=== PATIENT | female | born 1990 | race African-American/Black ===

== ENCOUNTER 2018-04-01 12:41 | Emergency (ER) | payer OTHER ==
[~2018-04-01] VITALS: Ht 157.5 cm; Wt 75.0 kg
[~2018-04-01 12:41] MED LIST: ATARAX25 MG PO; BCP TD; PRENATAL1 TA1 PO
[2018-04-01 12:47] VITALS: TEMP 98.2
[2018-04-01] MEDS ORDERED: FLEXERIL 1010 MG/TAB PO (15:42)
[2018-04-01 16:04] VITALS: BP 102/54; PULSE 60
== END 2018-04-01 16:05 | disposition home or self-care (01) ==
LOC: COL.ER 12:41
DX: S16.1XXA Strain of muscle, fascia and tendon at neck level, initial encounter (principal); Z90.89 Acquired absence of other organs; Z98.890 Other specified postprocedural states; Z87.891 Personal history of nicotine dependence; V49.50XA Passenger injured in collision with unspecified motor vehicles in traffic accident, initial encounter

== ENCOUNTER 2018-04-26 23:55 | Emergency (ER) | payer SELFPAY ==
[~2018-04-26] VITALS: Ht 157.5 cm; Wt 77.3 kg
[~2018-04-26 23:55] MED LIST changes: +FLEXERIL 1010 MG/TAB PO
[2018-04-27 00:02] VITALS: BP 110/56; TEMP 98.7
[2018-04-27 01:25] VITALS: PULSE 64
== END 2018-04-27 01:27 | disposition home or self-care (01) ==
LOC: COL.ER 23:55
DX: S83.91XA Sprain of unspecified site of right knee, initial encounter (principal); Z87.891 Personal history of nicotine dependence; Z88.8 Allergy status to other drugs, medicaments and biological substances; W22.8XXA Striking against or struck by other objects, initial encounter; Y99.0 Civilian activity done for income or pay

== ENCOUNTER 2018-08-06 19:57 | Emergency (ER) | payer SELFPAY | END 2018-08-06 20:30 | disposition left against medical advice (07) | LOC: COL.ER 19:57 | DX: Z72.9 Problem related to lifestyle, unspecified (principal) ==

== ENCOUNTER 2018-11-05 03:01 | Emergency (ER) | payer SELFPAY ==
[~2018-11-05] VITALS: Ht 157.5 cm; Wt 68.2 kg
[2018-11-05 03:06] VITALS: TEMP 98.9
[2018-11-05 04:25] LABS: BASO # 0.1 (0.0-0.2); BASO % 0.3 % (0.0-2.0); EOS # 0.1 (0.0-0.7); EOS % 0.7 % (0-4.0); GRAN # 10.5 (1.4-6.5); GRAN % 71.6 % (42.2-75.2); HEMATOCRIT 34.7 % (37.0-47.0); HEMOGLOBIN 11.9 g/dl (12.5-16.0); LYMPH % 20.2 % (20.0-51.0); MEAN CELL VOLUME 87 fl (80.0-100.0); MEAN CORPUSCULAR HEMOGLOBIN 30 pg (27.0-31.0); MEAN CORPUSCULAR HGB CONC 34 g/dl (33.0-37.0); MEAN PLATELET VOLUME 10.4 fl (7.4-10.4); MONO % 6.9 % (1.7-9.3); PLATELET COUNT 332 K/mm3 (130-400); RED BLOOD COUNT 3.98 M/mm3 (4.10-5.30); REDCELL DISTRIBUTION WIDTH-CV 14.2 % (11.5-14.5)
[2018-11-05 04:36] LABS: ANION GAP 8 mmol/L (7-16); BLOOD UREA NITROGEN 14 mg/dL (7-17); CARBON DIOXIDE 25 mmol/L (22-30); CHLORIDE 108 mmol/L (98-107); GLUCOSE 121 mg/dL (74-106); SODIUM 140 mmol/L (137-145)
[2018-11-05 04:45] LABS: C-REACTIVE PROTEIN < 0.5 mg/dL (0.0-0.9)
[2018-11-05 04:46] LABS: POTASSIUM 2.9 mmol/L (3.4-5.0)
[2018-11-05] MEDS ORDERED: CLEOCIN HCL300 MG PO (05:48)
[2018-11-05] MEDS ORDERED: NORCO 325 MG-51 TAB PO (05:48)
[2018-11-05 06:34] VITALS: BP 108/76; PULSE 60
== END 2018-11-05 06:44 | disposition home or self-care (01) ==
LOC: COL.ER 03:01
PROVIDERS: Emergency Medicine
DX: L03.011 Cellulitis of right finger (principal); F17.210 Nicotine dependence, cigarettes, uncomplicated
CPT/HCPCS: J3480; J7030

== ENCOUNTER 2018-12-02 20:54 | Emergency (ER) | payer SELFPAY ==
[~2018-12-02] VITALS: Ht 157.5 cm; Wt 69.1 kg
[~2018-12-02 20:54] MED LIST changes: +CLEOCIN HCL300 MG PO; +NORCO 325 MG-51 TAB PO
[2018-12-02 21:07] VITALS: BP 124/84; PULSE 93; TEMP 97.9
[2018-12-02] MEDS ORDERED: DOXYCYCLINE 10100 MG PO (21:29)
== END 2018-12-02 21:48 | disposition home or self-care (01) ==
LOC: COL.ER 20:54
DX: L02.414 Cutaneous abscess of left upper limb (principal); L03.114 Cellulitis of left upper limb

== ENCOUNTER 2019-06-06 15:56 | Emergency (ER) | payer SELFPAY ==
[~2019-06-06] VITALS: Ht 157.5 cm; Wt 72.7 kg
[~2019-06-06 15:56] MED LIST changes: +DOXYCYCLINE 10100 MG PO
[2019-06-06 16:07] VITALS: BP 120/91; TEMP 98
[2019-06-06 16:39] LABS: BASO % 0.4 % (0.0-2.0); EOS # 0.1 (0.0-0.7); EOS % 1.5 % (0-4.0); GRAN # 5.6 (1.4-6.5); GRAN % 65.9 % (42.2-75.2); HEMOGLOBIN 12.6 g/dl (12.5-16.0); LYMPH # 2.3 (1.2-3.4); LYMPH % 27.4 % (20.0-51.0); MEAN CELL VOLUME 91 fl (80.0-100.0); MEAN CORPUSCULAR HEMOGLOBIN 30 pg (27.0-31.0); MEAN CORPUSCULAR HGB CONC 33 g/dl (33.0-37.0); MONO # 0.4 (0.1-0.6); MONO % 4.6 % (1.7-9.3); PLATELET COUNT 384 K/mm3 (130-400); RED BLOOD COUNT 4.18 M/mm3 (4.10-5.30); REDCELL DISTRIBUTION WIDTH-CV 13.5 % (11.5-14.5)
[2019-06-06 16:51] LABS: ALBUMIN 4.3 gm/dL (3.5-5.0); BILIRUBIN,TOTAL 0.4 mg/dL (0.0-1.0); CALCIUM 9.2 mg/dL (8.4-10.2); CREATININE, serum 0.74 (0.52-1.25); POTASSIUM 3.5 mmol/L (3.4-5.0); TOTAL PROTEIN 7.1 gm/dL (6.4-8.2)
[2019-06-06 17:55] VITALS: PULSE 70
== END 2019-06-06 18:00 | disposition home or self-care (01) ==
LOC: COL.ER 15:56
PROVIDERS: Emergency Medicine
DX: N93.9 Abnormal uterine and vaginal bleeding, unspecified (principal); F17.210 Nicotine dependence, cigarettes, uncomplicated; Z98.51 Tubal ligation status

== ENCOUNTER 2021-04-29 15:04 | Emergency (ER) | payer SELFPAY ==
[~2021-04-29] VITALS: Ht 157.5 cm; Wt 75.9 kg
[2021-04-29 15:36] VITALS: TEMP 98.3
[2021-04-29 17:54] LABS: COLLECTION METHOD CLEAN CATCH
[2021-04-29 17:56] LABS: BASO % 0.5 % (0.0-2.0); GRAN # 2.2 K/mm3 (1.4-6.5); GRAN % 59.8 % (42.2-75.2); HEMOGLOBIN 11.5 g/dl (12.5-16.0); LYMPH # 0.8 K/mm3 (1.2-3.4); LYMPH % 22.5 % (20.0-51.0); MEAN CELL VOLUME 92 fl (80.0-100.0); MEAN CORPUSCULAR HEMOGLOBIN 30 pg (27-31); MEAN CORPUSCULAR HGB CONC 33 g/dl (33.0-37.0); MEAN PLATELET VOLUME 10.3 fl (7.4-10.4); MONO # 0.6 K/mm3 (0.1-0.6); MONO % 16.9 % (1.7-9.3); PLATELET COUNT 285 K/mm3 (130-400); RED BLOOD COUNT 3.81 M/mm3 (4.10-5.30); REDCELL DISTRIBUTION WIDTH-CV 13.7 % (11.5-14.5)
[2021-04-29 17:58] LABS: HEMATOCRIT 35.1 % (37.0-47.0)
[2021-04-29 18:03] LABS: MUCOUS Present (NOT PRESENT); PH 5 (5-8); URINE APPEARANCE Clear (CLEAR/HAZY); URINE BACTERIA None Seen /hpf (NONE SEEN); URINE BILIRUBIN Negative (NEGATIVE); URINE BLOOD Negative (NEGATIVE); URINE COLOR Yellow (YELLOW); URINE GLUCOSE Negative (NEGATIVE); URINE KETONE Trace (NEGATIVE); URINE LEUKOCYTE ESTERASE Negative (NEGATIVE); URINE NITRATE Negative (NEGATIVE); URINE PROTEIN(semi-quant) Negative (NEGATIVE); URINE RBC 0-2 /hpf (0-2); URINE UROBILINOGEN Negative (NEGATIVE)
[2021-04-29 18:32] LABS: ALBUMIN 3.8 gm/dL (3.5-5.0); BILIRUBIN,TOTAL 0.3 mg/dL (0.2-1.2); C-REACTIVE PROTEIN 1.3 mg/dL (0.00-0.50); CALCIUM 8.3 mg/dL (8.4-10.2); CREATININE, serum 0.76 mg/dL (0.57-1.11); POTASSIUM 3.1 mmol/L (3.5-4.5); TOTAL PROTEIN 6.5 gm/dL (6.2-8.1)
[2021-04-29] MEDS ORDERED: FLAGYL500 MG PO (19:27)
[2021-04-29 19:48] VITALS: BP 112/61; PULSE 78
== END 2021-04-29 19:46 | disposition home or self-care (01) ==
LOC: COL.ER 15:04
PROVIDERS: Nurse Practitioner
DX: U07.1 COVID-19 (principal); N76.0 Acute vaginitis; Z32.02 Encounter for pregnancy test, result negative
CPT/HCPCS: J2405; J3010; J7030

== ENCOUNTER 2021-09-06 08:46 | Inpatient (IN) | payer SELFPAY ==
[2021-09-06] VITALS (585 sets, daily range): BP systolic 91–139; BP diastolic 57–89; PULSE 69–98; TEMP 98–98.7; O2SAT 97–100
[~2021-09-06] VITALS: Ht 157.5 cm; Wt 76.6 kg
[~2021-09-06 08:46] MED LIST changes: +FLAGYL500 MG PO
[2021-09-06 09:24] LABS: BASO # 0.1 K/mm3 (0.0-0.2); BASO % 0.4 % (0.0-2.0); GRAN # 11.1 K/mm3 (1.4-6.5); GRAN % 88.4 % (42.2-75.2); HEMATOCRIT 37.7 % (37.0-47.0); HEMOGLOBIN 12.4 g/dl (12.5-16.0); LYMPH # 1.1 K/mm3 (1.2-3.4); LYMPH % 8.9 % (20.0-51.0); MEAN CELL VOLUME 90 fl (80.0-100.0); MEAN CORPUSCULAR HEMOGLOBIN 30 pg (27-31); MEAN CORPUSCULAR HGB CONC 33 g/dl (33.0-37.0); MEAN PLATELET VOLUME 9.6 fl (7.4-10.4); MONO # 0.2 K/mm3 (0.1-0.6); MONO % 1.8 % (1.7-9.3); PLATELET COUNT 403 K/mm3 (130-400); RED BLOOD COUNT 4.17 M/mm3 (4.10-5.30); REDCELL DISTRIBUTION WIDTH-CV 14.4 % (11.5-14.5)
[2021-09-06 09:36] LABS: INR 1.1 (0.8-3.0); PROTHROMBIN TIME 12.6 SECONDS (9.7-12.8)
[2021-09-06 09:44] LABS: ALANINE AMINOTRANSFERASE 22 U/L (0-55); ALBUMIN 4.1 gm/dL (3.5-5.0); ALCOHOL(ethanol),MEDICAL 22 mg/dL (0-10); ALKALINE PHOSPHATASE 48 U/L (40-150); ANION GAP 13 mmol/L (7-16); AST,SGOT 22 U/L (5-34); BILIRUBIN,TOTAL 0.3 mg/dL (0.2-1.2); BLOOD UREA NITROGEN 7 mg/dL (7-19); CALCIUM 8.2 mg/dL (8.4-10.2); CARBON DIOXIDE 17 mmol/L (22-29); CHLORIDE 112 mmol/L (98-107); GLUCOSE 146 mg/dL (70-99); LIPASE 36 U/L (8-78); MAGNESIUM 1.4 mg/dL (1.6-2.6); POTASSIUM 3.7 mmol/L (3.5-4.5); SODIUM 142 mmol/L (136-145); TOTAL PROTEIN 6.2 gm/dL (6.2-8.1)
[2021-09-06 09:45] LABS: SALICYLATE < 5.0 mg/dL (15.0-30.0)
[2021-09-06 10:01] LABS: TRICYCLIC ANTIDEPRESS URINE NEGATIVE
[2021-09-06 10:04] LABS: THYROID STIMULATING HORMONE 0.332 uIU/mL (0.350-4.940)
[2021-09-06] MEDS ORDERED: EFFEXOR 3737.5 MG/TA PO (11:04)
--- NOTE | 2021-09-06 11:30 | NUR ---
PT ADMITTED FROM ED WITH OD. PT IS LETHARGIC. PT WILL ANSWER SOME QUESTIONS BUT NOT ALL. PT WILL NO ANSWER SUICIDE SCREENING QUESTIONS. BELONGINGS (SHOES, VAPE PEN, AND EMPTY MEDICATION BOTTLE) SENT TO SECURITY. ALL UNNECESSARY EQUIPMENT AND SUPPLIES REMOVED FROM ROOM. SEIZURE PADS IN PLACE. VSS. BED ALARM ACTIVE. NOTIFIED OF ARRIVAL TO UNIT.
--- NOTE | 2021-09-06 12:31 | NUR ---
PT UP TO BEDSIDE COMMODE. PT ASKING FOR WATER. INSTUCTED WE ARE STILL WAITING ON THE DOCTOR. ASKED PT SUICIDE SCREENING QUESTIONS AGAIN AND PT STILL REFUSING TO ANSWER. WILL CONTINUE TO MONTIOR CLOSELY.
--- NOTE | 2021-09-06 13:18 | NUR ---
Social work called regarding next of kin and pt's children. Taya stated she will try to track down Pt's next of kin and where her children are.
--- NOTE | 2021-09-06 14:53 | NUR ---
Life Advisor received a call from Ana FERNANDEZ about patient who admitted today. RN is concerned about the whereabouts of patient's children and patient's legal next of kin. SW contacted patient's friend, Papa Chino (ph#[phone]) who brought patient into the ED. EUNICE asked Papa if he was a friend or a boyfriend and he stated "in between". Papa reports he does not talk about patient's children with her as it is a "sore subject". Papa is unsure of the custody situation but knows the children don't live with her. EUNICE asked Papa about legal next of kin. Papa states to his knowledge, patient grew up in the foster care system and he has no contact information for patient's family. Papa advised he believes patient may still be legally to her ex, Smith Gracia but Papa thought he may be in residential. SW met with patient to follow up. Patient had great difficulty keeping her eyes open but did minimally answer some questions. EUNICE had talked with RN right before this who advised patient not able to sign any paperwork at this time. SW asked patient if she lives in [place] and she quietly stated yes. Patient stated she lives with Papa. When asked if she has children, patient initially stated no. SW inquired again and advised it was reported to her that patient has children. Patient answered again very quietly and stated her children are up for adoption. Patient stated they do not live with her. SW inquired about legal next of kin and patient states she is still legally to Smith Gracia and she thinks he lives in [place]. EUNICE unable to obtain contact information for him. Patient then asked SW if she is going to and also states she needs to use the bathroom. SW notified RN of patient's request.
[2021-09-06 19:29] LABS: INR 1.1 (0.8-3.0); PROTHROMBIN TIME 12.7 SECONDS (9.7-12.8)
[2021-09-06 19:38] LABS: ALBUMIN 3.6 gm/dL (3.5-5.0); BILIRUBIN,TOTAL 0.6 mg/dL (0.2-1.2); CALCIUM 7.5 mg/dL (8.4-10.2); CREATININE, serum 0.73 mg/dL (0.57-1.11); TOTAL PROTEIN 5.5 gm/dL (6.2-8.1)
--- NOTE | 2021-09-06 20:30 | NUR ---
PT AWAKE, ASSISTED TO COMMODE. GAIT STEADY. PT STATES DOES FEEL SLIGHTLY LIGHTHEADED WHEN FIRST SAT UP, BUT FEELING BETTER THAN PREVIOUSLY. REPORTS A BIT OF NAUSEA, STOMACH PAIN, BUT TOLERATING WATER WITHOUT DIFFICULTY. NO REAL APPETITE AT THIS TIME. PT DENIES ANY FEELING OF SELF HARM AT PRESENT, PRECAUTIONS AND MONITORING EXPLAINED TO PATIENT, AND SHE STATES UNDERSTANDING. PT ASKS THAT LIANNA BE CALLED AND UPDATED - WILL DO THIS SHIFT. WILL CONTINUE TO MONITOR.
[2021-09-07] VITALS (390 sets, daily range): BP systolic 94–122; BP diastolic 56–81; PULSE 66–94; TEMP 97.8–98.2; O2SAT 98–100
--- NOTE | 2021-09-07 | NUR ---
DISCUSSED LOW POTASSIUM WITH PROVIDER KATI CHEUNG. STATES TO WAIT TO SEE RESULTS OF AM LABS.
[2021-09-07 05:06] LABS: BASO # 0.1 K/mm3 (0.0-0.2); BASO % 0.6 % (0.0-2.0); EOS % 0.1 % (0.0-4.0); GRAN % 74.9 % (42.2-75.2); HEMATOCRIT 33.2 % (37.0-47.0); HEMOGLOBIN 10.9 g/dl (12.5-16.0); MEAN CELL VOLUME 91 fl (80.0-100.0); MEAN CORPUSCULAR HEMOGLOBIN 30 pg (27-31); MEAN CORPUSCULAR HGB CONC 33 g/dl (33.0-37.0); MEAN PLATELET VOLUME 9.5 fl (7.4-10.4); MONO # 0.6 K/mm3 (0.1-0.6); MONO % 5.1 % (1.7-9.3); PLATELET COUNT 322 K/mm3 (130-400); RED BLOOD COUNT 3.64 M/mm3 (4.10-5.30); REDCELL DISTRIBUTION WIDTH-CV 14.2 % (11.5-14.5)
[2021-09-07 05:12] LABS: INR 1.2 (0.8-3.0); PROTHROMBIN TIME 13.4 SECONDS (9.7-12.8)
[2021-09-07 05:20] LABS: ALBUMIN 3.2 gm/dL (3.5-5.0); BILIRUBIN,TOTAL 0.9 mg/dL (0.2-1.2); CALCIUM 7.6 mg/dL (8.4-10.2); CREATININE, serum 0.67 mg/dL (0.57-1.11); MAGNESIUM 2.1 mg/dL (1.6-2.6); TOTAL PROTEIN 4.9 gm/dL (6.2-8.1)
[2021-09-07 05:23] LABS: POTASSIUM 2.7 mmol/L (3.5-4.5)
--- NOTE | 2021-09-07 05:34 | NUR ---
SPOKE WITH POISON CONTROL, UPDATED WITH PT'S LABS, EKG MEASUREMENTS, AND VITAL SIGNS. TYLENOL LEVEL DOWN TO 6, PER POISON CONTROL, CAN STOP ACETYLCYSTEINE. CALL TO KATI CHEUNG, STATES TO FINISH VOLUME IN BAG AND DAY SHIFT PROVIDERS CAN DECIDE IF SECOND ORDERED BAG IS INDICATED. POISON CONTROL STATES THEY WILL CLOSE CASE ON THEIR SIDE, BUT AVAILABLE IF NEEDED.
--- NOTE | 2021-09-07 07:38 | NUR ---
Recieved bedside report from Adriana FERNANDEZ. Resumed care of PT. PT is laying in bed, states that she wants to go home and that she does not of thoughts of harming herself. I explained to the PT that the process for safe discharge is to be medically cleared and then consult with a Psychiatrist. PT is understandable of the process. VSS. Morning EKG done.
--- NOTE | 2021-09-07 10:21 | NUR ---
Initial visit attempt; Patient in Isolation, Property Field Inspector left her card offering God's blessings with nurse to give to patient.
--- NOTE | 2021-09-07 19:30 | NUR ---
PATIENT DISCHARGED WITH INSTRUCTIONS TO FOLLOWUP WITH / FOLLOWUP WITH SAFETY PLAN/CALL CRISIS HOTLINE WITH ANY CONCERN OR QUESTIONS/ PATIENT SIGNS DISCHARGE AND CAN VERBALISE UNDERSTANDING INSTRUCTIONS, VITALS RECORDED B/P 111/89 P 91 RESP 16 SATS 100 PERCENT RA/ DENIES PAIN OR DIFFICULTY/ IV IN BOTH ARMS REMOVED AND BANDAGED WITH CARE INSTRUCTIONS OF WOUNDS DEMONSTRATED. WALKED PATIENT OUT ER DOORS WITH BOY FRIEND FAMILY AWAITING IN CAR DISCHARGE AT 1930 09/07/2021
== END 2021-09-07 19:13 | disposition home or self-care (01) | DRG 918 ==
LOC: COL.ER 08:46 → ICU 10:43
PROVIDERS: Emergency Medicine; ADMIT Internal Medicine
DX: T39.1X2A Poisoning by 4-Aminophenol derivatives, intentional self-harm, initial encounter (principal); T43.212A Poisoning by selective serotonin and norepinephrine reuptake inhibitors, intentional self-harm, initial encounter; F41.9 Anxiety disorder, unspecified; F17.210 Nicotine dependence, cigarettes, uncomplicated; D72.829 Elevated white blood cell count, unspecified
CPT/HCPCS: 99232-AI; 99238; J0132; J2060; J2405; J3475; J7030; J7070

== ENCOUNTER 2022-03-09 13:34 | Emergency (ER) | payer SELFPAY ==
[~2022-03-09] VITALS: Ht 157.5 cm; Wt 72.7 kg
[~2022-03-09 13:34] MED LIST changes: +EFFEXOR 3737.5 MG/TA PO
[2022-03-09 13:42] VITALS: TEMP 98.7
[2022-03-09 15:50] VITALS: BP 114/77; PULSE 75
== END 2022-03-09 15:56 | disposition home or self-care (01) ==
LOC: COL.ER 13:34
DX: S50.11XA Contusion of right forearm, initial encounter (principal); Z28.310 Unvaccinated for COVID-19; W10.9XXA Fall (on) (from) unspecified stairs and steps, initial encounter

== ENCOUNTER 2022-03-10 20:30 | Emergency (ER) | payer SELFPAY ==
[~2022-03-10] VITALS: Ht 157.5 cm; Wt 72.7 kg
[2022-03-10 20:37] VITALS: BP 91/57; TEMP 97.4
[2022-03-10 22:00] VITALS: PULSE 63
== END 2022-03-10 22:00 | disposition home or self-care (01) ==
LOC: COL.ER 20:30
DX: S16.1XXA Strain of muscle, fascia and tendon at neck level, initial encounter (principal); S40.011A Contusion of right shoulder, initial encounter; Z87.891 Personal history of nicotine dependence; W10.9XXA Fall (on) (from) unspecified stairs and steps, initial encounter

== ENCOUNTER 2024-01-03 15:28 | Emergency (ER) | payer OTHER ==
[~2024-01-03] VITALS: Ht 157.5 cm; Wt 88.0 kg
[~2024-01-03 15:28] MED LIST changes: +PERCOCET 325 MG1 TA2 PO
[2024-01-03 15:34] VITALS: TEMP 98.8
[2024-01-03] MEDS ORDERED: CEPHALEXIN500 M1 PO (17:49)
[2024-01-03 17:59] VITALS: BP 123/72; PULSE 77
== END 2024-01-03 17:59 | disposition home or self-care (01) ==
LOC: COL.ER 15:28
DX: S01.511A Laceration without foreign body of lip, initial encounter (principal); Z87.891 Personal history of nicotine dependence; Y04.8XXA Assault by other bodily force, initial encounter